=== PATIENT | female | born 1975 | race Caucasian/White ===

== ENCOUNTER 2019-10-09 15:40 | Emergency (ER) | payer OTHER ==
[2019-10-09 16:11] LABS: Basophils # (Auto) 0.1 K/mm3 (0.0-0.1); Basophils % (Auto) 1.4 % (0.0-1.8); Eosinophils # (Auto) 0.1 K/mm3 (0.0-0.4); Eosinophils % (Auto) 1.2 % (0.0-4.3); Lymphocytes # (Auto) 2.1 K/mm3 (1.2-5.4); Lymphocytes % (Auto) 25.2 % (13.4-35.0); Mean Corpuscular HGB Conc 32 % (30-34); Mean Corpuscular Volume 84 fl (79-97); Monocytes # (Auto) 0.5 K/mm3 (0.0-0.8); Monocytes % (Auto) 5.6 % (0.0-7.3); Platelet Count 275 K/mm3 (140-440); Red Blood Count 4.41 M/mm3 (3.65-5.03)
[2019-10-09 16:34] LABS: INR 0.85 (0.87-1.13)
[2019-10-09 16:43] LABS: Alanine Aminotransferase 26 units/L (7-56); Albumin 4.1 g/dL (3.9-5); BUN/Creatinine Ratio 15; Blood Urea Nitrogen 12 mg/dL (7-17); Calcium 9.5 mg/dL (8.4-10.2); Hemolysis Index 21
--- NOTE | 2019-10-09 17:35 | Emergency Department Report ---
ED Abdominal Pain HPI - General Chief Complaint: GI Bleed Stated Complaint: RT SIDE ABD PAIN Time Seen by Provider: 10/09/19 17:20 Source: patient Mode of arrival: Ambulatory Limitations: No Limitations - History of Present Illness Initial Comments: Patient is 44 years old female with no significant past medical history. Patient presented to the ER complaining of right upper quadrant abdominal pain for the last 5 days. Patient described her pain as sharp comes and goes. Patient stated that she had some GI bleed and she has been followed by GI last week and they did a CT abdomen and pelvis and they told her that nothing acute. Patient denied any nausea or vomiting. Patient also denied any fever or chills. MD Complaint: abdominal pain -: days(s) Location: RUQ Radiation: none Migration to: no migration - Related Data Previous Rx's Medication Instructions Recorded Last Taken Type Famotidine [Pepcid] 20 mg PO BID #30 tablet 04/12/16 Unknown Rx diphenhydrAMINE [Benadryl CAP] 25 mg PO Q8HR PRN #20 capsule 04/12/16 Unknown Rx methylPREDNISolone [Medrol] 4 mg PO DAILY #1 tab.ds.pk 04/12/16 Unknown Rx Allergies Allergy/AdvReac Type Severity Reaction Status Date / Time No Known Allergies Allergy Unverified 10/09/19 15:43 ED Review of Systems ROS: Stated complaint: RT SIDE ABD PAIN Other details as noted in HPI Comment: All other systems reviewed and negative Constitutional: denies: chills, fever Respiratory: denies: shortness of breath Cardiovascular: denies: chest pain Gastrointestinal: abdominal pain, hematochezia. denies: nausea, vomiting, diar mahad, constipation, hematemesis, melena Musculoskeletal: denies: back pain Neurological: denies: headache, weakness, numbness, paresthesias, confusion, abnormal gait ED Past Medical Hx - Past Medical History Previous Medical History?: Yes Hx Asthma: Yes - Surgical History Past Surgical History?: Yes Additional Surgical History: Shoulder surgery, , Adenoid/tonsilectomy - Social History Smoking Status: Never Smoker Substance Use Type: None - Medications Home Medications: Home Medications Medication Instructions Recorded Confirmed Last Taken Type Famotidine [Pepcid] 20 mg PO BID #30 tablet 04/12/16 Unknown Rx diphenhydrAMINE [Benadryl CAP] 25 mg PO Q8HR PRN #20 capsule 04/12/16 Unknown Rx methylPREDNISolone [Medrol] 4 mg PO DAILY #1 tab.ds.pk 04/12/16 Unknown Rx ED Physical Exam - General Limitations: No Limitations General appearance: alert, in no apparent distress - Head Head exam: Present: atraumatic, normocephalic, normal inspection - Eye Eye exam: Present: normal appearance, PERRL - ENT ENT exam: Present: normal exam, normal orophraynx, mucous membranes moist - Neck Neck exam: Present: normal inspection, full ROM. Absent: tenderness, meningismus, lymphadenopathy, thyromegaly - Respiratory Respiratory exam: Present: normal lung sounds bilaterally - Cardiovascular Cardiovascular Exam: Present: regular rate, normal rhythm, normal heart sounds - GI/Abdominal GI/Abdominal exam: Present: soft, tenderness (Right upper quadrant tenderness.), normal bowel sounds. Absent: distended, guarding, rebound, rigid, organomegaly, mass, bruit, pulsatile mass, hernia - Extremities Exam Extremities exam: Present: normal inspection, full ROM, normal capillary refill - Back Exam Back exam: Present: normal inspection, full ROM. Absent: CVA tenderness (R), CVA tenderness (L) - Neurological Exam Neurological exam: Present: alert, oriented X3, CN II-XII intact, normal gait, reflexes normal. Absent: motor sensory deficit - Psychiatric Psychiatric exam: Present: normal mood - Skin Skin exam: Present: warm, intact, normal color ED Course Vital Signs 10/09/19 10/09/19 15:43 19:08 Temperature 98.1 F Pulse Rate 82 79 Respiratory 18 18 Rate Blood Pressure 147/86 Blood Pressure 108/54 [Left] O2 Sat by Pulse 98 100 Oximetry ED Medical Decision Making - Lab Data Result diagrams: 10/09/19 15:55 10/09/19 16:06 - Medical Decision Making Patient is 44 years old female with no significant past medical history. Patient presented to the ER complaining of right upper quadrant abdominal pain for the last 5 days. Patient described her pain as sharp comes and goes. Patient stated that she had some GI bleed and she has been followed by GI last week and they did a CT abdomen and pelvis and they told her that nothing acute. Patient denied any nausea or vomiting. Patient also denied any fever or chills. Labs reviewed and is unremarkable. Gallbladder ultrasound showed gallstones but no evidence of acute cholecystitis. Patient advised to follow-up with a surgeon, patient given Dr. Baumann to follow-up with. Patient also advised to return to the ER if he develop any new symptoms. Critical care attestation.: If time is entered above; I have spent that time in minutes in the direct care of this critically ill patient, excluding procedure time. ED Disposition Clinical Impression: Abdominal pain, Gallstone Disposition: - TO HOME OR SELFCARE Is pt being admited?: No Condition: Stable Instructions: Abdominal Pain (ED), Biliary Colic (ED) Referrals: MARIAA DOBBS MD [Primary Care Provider] - 3-5 Days RAYMON BAUMANN DO [Staff Physician] - 3-5 Days Forms: Accompanied Note
[2019-10-09] MEDS ORDERED: MORPHINE 4 MG/1 ML INJ IM ONE (17:54)
[2019-10-09] MEDS ORDERED: ONDANSETRON 4 MG/2 ML INJ IM ONE (17:54)
[2019-10-09 18:08] LABS: HCG Qualitative,Urine Negative (Negative)
[2019-10-09 18:09] LABS: Bilirubin,Urine NEG (Negative); Blood,Urine MOD (Negative); Color,Urine Yellow (Yellow); Mucus,Urine FEW /HPF; Protein,Urine <15 mg/dL mg/dL (Negative); Urobilinogen,Urine < 2.0 mg/dL (<2.0)
--- NOTE | 2019-10-09 19:15 | Ultrasound Report ---
ULTRASOUND ABDOMEN, LIMITED (RIGHT UPPER QUADRANT) INDICATION: Right upper quadrant pain and tenderness. COMPARISON: None available. FINDINGS: Pancreas: Visualized portion shows no significant abnormality. Liver: Mild increased echotexture. Gallbladder: Gallstone. No wall thickening. Bile ducts: Normal. Common Bile Duct measures 5.4 mm. Free fluid: None. Additional Findings: None. IMPRESSION: 1. Gallstone. 2. Suspect underlying hepatocellular disease. Signer Name: Norman Garcia MD Signed: 10/09/2019 7:11 PM Workstation Name: [id number]
[2019-10-09 20:07] VITALS: BP 109/68
== END 2019-10-09 20:07 | disposition home or self-care (01) ==
LOC: ED 15:40
DX: R10.11 Right upper quadrant pain (principal); K80.20 Calculus of gallbladder without cholecystitis without obstruction; J45.909 Unspecified asthma, uncomplicated; Z90.79 Acquired absence of other genital organ(s); Z98.890 Other specified postprocedural states; Z79.899 Other long term (current) drug therapy
CPT/HCPCS: 36415; 76705; 80053; 81001; 81025; 83690; 85025; 85610; 96372; 99284; J2270; J2405

== ENCOUNTER 2019-10-30 07:00 | Day surgery (SDC) | payer OTHER ==
--- NOTE | 2019-10-28 09:17 | Anesthesia Consultation ---
Anesthesia Consult and Med Hx Date of service: 10/30/19 - Airway Anesthetic Teeth Evaluation: Good ROM Head & Neck: Adequate Mental/Hyoid Distance: Adequate Mallampati Class: Class I Intubation Access Assessment: Possibly Difficult - Pulmonary Exam CTA: Yes - Cardiac Exam Cardiac Exam: RRR - Pre-Operative Health Status ASA Pre-Surgery Classification: ASA3 Proposed Anesthetic Plan: General - Pulmonary Hx Asthma: Yes (rare inhaler use) Hx Respiratory Symptoms: No Hx Sleep Apnea: No (KINJAL PRE SCREEN HIGH RISK) - Cardiovascular System Hx Hypertension: No Hx Heart Attack/AMI: No Hx Percutaneous Transluminal Coronary Angioplasty (PTCA): No - Central Nervous System CVA: No - Gastrointestinal Hx Gastroesophageal Reflux Disease: Yes - Endocrine Hx Renal Disease: No Hx Liver Disease: No Hx Insulin Dependent Diabetes: No Hx Non-Insulin Dependent Diabetes: No Hx Thyroid Disease: No - Hematic Hx Anemia: No - Other Systems Hx Obesity: Yes (BMI 42) - Additional Comments Anesthesia Medical History Comments: No hx anesthetic complications.
[~2019-10-30 07:00] MED LIST: CELECOXIB 200 MG CAP PO NR; GABAPENTIN 300 MG CAP PO NR; LACTATED RINGERS 1,000 ML IV SCH; MAGNESIUM OXIDE 400 MG TAB PO SCH; MIDAZOLAM 2 MG/2 ML INJ IV NR; SCOPOLAMINE TRANSDERMAL PATCH 72 HR TD NR
[2019-10-30] MEDS ORDERED: BUPIVACAINE/PF (0.5%) 5 MG/1 ML 30 ML VIAL INFILTRATI ONE ×2 (07:42→10:48)
[2019-10-30] MEDS ORDERED: LIDOCAINE (1%) 10 MG/1 ML VIAL 20 ML MDV ONE (07:42)
[2019-10-30] MEDS ORDERED: ONDANSETRON 4 MG/2 ML INJ IV PRN (07:49)
--- NOTE | 2019-10-30 07:49 | Anesthesia Day of Surgery ---
Anesthesia Day of Surgery - Day of Surgery Patient Examined: Yes Patient H&P Reviewed: Yes Patient is NPO: Yes
[2019-10-30] MEDS ORDERED: ceFAZolin/Water 2 GM/20 ML 2 GM/20 ML SYRINGE IV NR (08:00)
[2019-10-30] MEDS ORDERED: ROCURONIUM 50 MG/5 ML INJ IV ONE (09:38)
[2019-10-30] MEDS ORDERED: HYDROmorphone 1 MG/1 ML INJ ONE (09:38)
[2019-10-30] MEDS ORDERED: dexAMETHasone 20 MG/5 ML VIAL ONE (09:38)
[2019-10-30] MEDS ORDERED: LIDOCAINE MPF (2%) 20 MG/1 ML VIAL 5 ML ONE (09:38)
[2019-10-30] MEDS ORDERED: ONDANSETRON 4 MG/2 ML INJ ONE (09:38)
[2019-10-30] MEDS ORDERED: propofoL 200 MG/20 ML VIAL IV ONE (09:39)
[2019-10-30] MEDS ORDERED: SUCCINYLCHOLINE CHLORIDE 200 MG/10 ML INJ MDV ONE (09:39)
[2019-10-30] MEDS ORDERED: LIDOCAINE (1%) 10 MG/1 ML VIAL 20 ML MDV INFILTRATI ONE (10:48)
[2019-10-30] MEDS ORDERED: WATER FOR IRRIG STERILE 1,500 ML BOTTLE IR ONE (10:49)
[2019-10-30] MEDS ORDERED: SODIUM CHLORIDE 0.9% IRRIG SOLN 2000 ML IR ONE (10:50)
[2019-10-30] MEDS ORDERED: LACTATED RINGERS 1,000 ML ONE (11:00)
[2019-10-30] MEDS ORDERED: NEOSTIGMINE 10MG/10 ML INJ MDV ONE (11:06)
[2019-10-30] MEDS ORDERED: GLYCOPYRROLATE 0.4 MG/2 ML INJ ONE (11:06)
--- NOTE | 2019-10-30 11:20 | Short Stay Summary ---
Short Stay Documentation Date of service: 10/30/19 - History Principal diagnosis: symptomatic cholelithiasis H&P: obtained from office - Allergies and Medications Current Medications: Allergies No Known Allergies Allergy (Verified 10/23/19 14:26) Home Medications Medication Instructions Recorded Confirmed Last Taken Type Ondansetron [Zofran Odt] 4 mg PO Q8HR PRN #14 tab.rapdis 10/09/19 10/30/19 05:30 Rx traMADoL [Ultram] 50 mg PO Q6HR PRN #14 tablet 10/09/19 10/30/19 10/29/19 18:00 Rx ALBUTEROL NEB's [Proventil 0.083% 2.5 mg IH TID PRN 10/23/19 10/30/19 06/13/18 09:00 History NEBS] Dicyclomine [Bentyl] 20 mg PO DAILY 10/23/19 10/30/19 10/29/19 09:00 History Omeprazole Magnesium [PriLOSEC Otc] 40 mg PO QDAY 10/23/19 10/30/19 10/30/19 05:30 History Active Medications Celecoxib (Celebrex) 200 mg PO PREOP NR Stop: 10/30/19 23:59 Last Admin: 10/30/19 07:40 Dose: 200 mg Documented by: Gabapentin (Gabapentin) 600 mg PO PREOP NR Stop: 10/31/19 23:59 Last Admin: 10/30/19 07:40 Dose: 600 mg Documented by: Hydromorphone HCl (Dilaudid) 0.5 mg IV Q10MIN PRN PRN Reason: Pain , Severe (7-10) Stop: 10/30/19 23:00 Lactated Ringer's (Lactated Ringers) 1,000 mls @ 100 mls/hr IV DIRECT ANA Stop: 10/30/19 23:59 Last Admin: 10/30/19 07:45 Dose: 100 mls/hr Documented by: Cefazolin Sodium (Ancef/Sterile Water 2 Gm/20 Ml) 2 gm in 20 mls @ 80 mls/hr IV PREOP NR Stop: 10/30/19 18:00 Magnesium Oxide (Mag-Ox) 400 mg PO PREOP ANA Stop: 10/30/19 23:59 Last Admin: 10/30/19 07:40 Dose: 400 mg Documented by: Midazolam HCl (Versed) 2 mg IV PREOP NR Stop: 10/30/19 23:59 Last Admin: 10/30/19 08:25 Dose: 2 mg Documented by: Ondansetron HCl (Zofran) 4 mg IV ONCE PRN PRN Reason: Nausea And Vomiting Stop: 10/30/19 18:00 Scopolamine (Transderm-Scop) 1 each TD PREOP NR Stop: 11/03/19 23:59 Last Admin: 10/30/19 07:40 Dose: 1 each Documented by: - Brief post op/procedure progress note Date of procedure: 10/30/19 Pre-op diagnosis: symptomatic cholelithiasis Post-op diagnosis: same Procedure: robotic assisted cholecystectomy Anesthesia: GETA, local Findings: 1. gallbladder with large stone 2. adhesions from stomach to gallbladder Surgeon: RAYMON BAUMANN Estimated blood loss: minimal Pathology: list (gallbladder) Specimen disposition: to lab Condition: stable - Hospital course Hospital course: Pt observed in PACU and discharged to home in stable condition when criteria met - Disposition Condition at discharge: Good Disposition: DC-01 TO HOME OR SELFCARE Short Stay Discharge Plan Activity: other (no heavy lifting for 2 weeks) Diet: regular, low fat Wound: open to air, per your surgeon's advice Additional Instructions: SEE PRINTED DISCHARGE PAPERWORK Follow up with: MARIAA DOBBS MD [Primary Care Provider] - 7 Days RAYMON BAUMANN DO [Staff Physician] - 14 Days
[2019-10-30] MEDS: HYDROmorphone 1 MG/1 ML INJ IV PRN ×3 (11:36→12:05)
[2019-10-30] MEDS ORDERED: HYDROcodone/ACETAMINOPHEN 5-325 MG TAB PO PRN (12:18)
[2019-10-30 12:34] VITALS: BP 134/83
--- NOTE | 2019-10-30 13:53 | Post Anesthesia Evaluation ---
- Post Anesthesia Evaluation Patient Participated: Yes Airway Patent: Yes Stable Respiratory Function: Yes Nausea/Vomiting: No Temp > 96.8F: Yes Pain Manageable: Yes Adequeate Hydration: Yes Anesthesia Complications: No Block Receding Appropriately: Not Applicable Patient on Ventilator: No
--- NOTE | 2019-10-30 16:07 | Operative Report ---
Operative Report Operative Report: Date of procedure: 10/30/19 Pre-op diagnosis: symptomatic cholelithiasis Post-op diagnosis: same Procedure: robotic assisted cholecystectomy Anesthesia: GETA, local Findings: 1. gallbladder with large stone 2. adhesions from stomach to gallbladder Surgeon: RAYMON BAUMANN Estimated blood loss: minimal Pathology: list (gallbladder) Specimen disposition: to lab Condition: stable - Hospital course Hospital course: Pt observed in PACU and discharged to home in stable condition when criteria met HPI an indication: 44-year-old female who was referred to the office for evaluation of gallstones. Pertinent lab data and imaging were reviewed and patient was found to have symptomatic cholelithiasis and cholecystectomy was recommended. All risks, benefits, alternatives to surgery were discussed with the patient and questions answered. Consent was signed for a robotic assisted cholecystectomy, possible open, possible cholangiogram. Procedure in detail: The patient was identified in the preoperative area and taken back to the operating room, placed on the operating room table in supine position. The patient's right arm was tucked and all bony prominences padded appropriately. After anesthesia was induced, the abdomen was prepped and draped in usual sterile fashion and timeout was performed. Local anesthetic was infiltrated into all of the skin incision sites. Using a 11 blade a stab incision was made in the left upper quadrant at Allen's point through which a Veress needle was inserted. The position of the veress needle was confirmed with the saline drop test and the abdomen was then insufflated to 15 mmHg. A supraumbilical incision was made through which a 12 mm Optiview trocar was placed. The abdomen was then inspected and the Veress needle located. There is no underlying injury to any of the abdominal contents and the Veress needle was withdrawn. An additional right upper quadrant, right mid lateral abdominal, and left upper quadrant 8 mm robotic trocars were placed under direct visualization. The patient was placed in reverse Trendelenburg and tilted to the left. The robot was then docked in the usual fashion and the surgeon transferred to the c onsole. The gallbladder was visualized and there were from the gallbladder to the stomach. The gallbladder was grasped and retracted cephalad. The adhesions to the stomach were carefully dissected using hook electrocautery with great care to avoid injury to underlying structures. The cystic duct and artery were then carefully dissected and the critical view obtained, and the cystic duct and ar tad were the only two structures seen entering the gallbladder. Two hemolock clips were then placed on the proximal aspect of the cystic duct and one clip distally, and 2 hemolock clip was placed on the cystic artery proximally and one distally. The cystic duct and artery was transected in between the clips using EndoShears by the optometrist assistant surgeon. The gallbladder was dissected off the liver bed using hook electrocautery. Once the gallbladder dissection was complete it was placed into the right upper quadrant and the liver bed and gallbladder fossa examined. The clips were visualized and intact. Hemostasis was carefully ensured using cautery and no bleeding was seen. The robot was then undocked and the surgeon scrubbed back in. The remainder of the case was performed laparoscopically. The gallbladder was placed into a Endo Catch bag and removed via the 12 mm port. The gallbladder fossa and right upper quadrant were irrigated until the irrigant returned clear. The patient was then placed into neutral position and Morison's pouch was irrigated and the irrigant returned clear. The 12 mm port fascia was closed with interrupted 0 Vicryl sutures using the Terry Jacinto de vice. The remaining ports were removed under direct visualization. Skin incisions were closed with 4-0 Monocryl subcuticular stitches and skin glue. All skin incisions were once again infiltrated with local anesthetic. Palpation of the gallbladder revealed a large stone. At the end case all sponge, instrument, sharp counts were correct 2. The patient was awoken from anesthesia, extubated, taken to PACU in stable condition.
== END 2019-10-30 07:01 | disposition home or self-care (01) ==
LOC: OR 07:00
PROVIDERS: ATTEND Surgery
DX: K80.20 Calculus of gallbladder without cholecystitis without obstruction (principal); Z11.59 Encounter for screening for other viral diseases; G43.909 Migraine, unspecified, not intractable, without status migrainosus; J45.909 Unspecified asthma, uncomplicated; G47.30 Sleep apnea, unspecified; E66.9 Obesity, unspecified; Z79.899 Other long term (current) drug therapy; Z98.890 Other specified postprocedural states
CPT/HCPCS: 47562; 81025; 88304; A4217; J0330; J0690; J1100; J1170; J2250; J2405; J2704; J2710; J7120; S2900; U0003

== ENCOUNTER 2020-06-09 00:49 | Emergency (ER) | payer OTHER ==
[2020-06-09] MEDS ORDERED: KETOROLAC 30 MG/1 ML INJ IV ONE (03:23)
[2020-06-09] MEDS ORDERED: ONDANSETRON 4 MG/2 ML INJ IV ONE (03:23)
[2020-06-09 04:40] LABS: Basophils % (Auto) 0.2 % (0.0-1.8); Eosinophils # (Auto) 0.1 K/mm3 (0.0-0.4); Eosinophils % (Auto) 0.5 % (0.0-4.3); Hematocrit 39.2 % (30.3-42.9); Hemoglobin 13.2 gm/dl (10.1-14.3); Lymphocytes # (Auto) 0.7 K/mm3 (1.2-5.4); Lymphocytes % (Auto) 6.2 % (13.4-35.0); Mean Corpuscular HGB Conc 34 % (30-34); Mean Corpuscular Volume 83 fl (79-97); Monocytes # (Auto) 0.6 K/mm3 (0.0-0.8); Monocytes % (Auto) 5.4 % (0.0-7.3); Platelet Count 273 K/mm3 (140-440); Red Blood Count 4.73 M/mm3 (3.65-5.03); Red Cell Distribution Width 14.9 % (13.2-15.2)
[2020-06-09 05:04] LABS: Alanine Aminotransferase 21 units/L (7-56); Blood Urea Nitrogen 25 mg/dL (7-17); Calcium 9.3 mg/dL (8.4-10.2); Hemolysis Index 2
[2020-06-09 05:09] LABS: BUN/Creatinine Ratio 36; Bilirubin,Direct < 0.2 mg/dL (0-0.2)
--- NOTE | 2020-06-09 06:00 | Cat Scan Report ---
CT ABDOMEN AND PELVIS WITH CONTRAST INDICATION: Abdominal Pain CONTRAST: 100 cc Omnipaque 300 IV COMPARISON: Right upper quadrant ultrasound 10/09/[address] scans at this location are performed using CT dose reduction for ALARA by means of automated e xposure control. NOTE: Resolution is decreased and artifact is introduced by the patient's size. FINDINGS: Lung bases show no definite acute infiltrates though in the lateral periphery of the lingul a and left lower lobe there is a small amount of groundglass type interstitial change which possibly could represent acute interstitial infiltrate but could be chronic. No areas of consolidation are see n. Gallbladder has been removed. No biliary dilatation is seen. Mild fatty infiltration of the liver is noted. Liver is mildly enlarged and has a length of 19.5 cm. No focal lesions are seen. Spleen is not enlarged. No urinary obstructive changes are noted. No lymphadenopathy is seen. Small right ovarian cyst probably is physiologic. No free fluid is noted. No evidence of bowel obstruction is seen. Mild colonic diverticulosis is noted without evidence of diverticulitis. Appendix appears within normal li mits. IMPRESSION: 1. No acute abnormalities are seen in the abdomen or pelvis 2. Mild peripheral groundglass type interstitial change in the periphery of the left lower lobe and l ingula of unknown chronicity. I cannot exclude the possibility of mild acute interstitial infiltrate and clinical correlation is suggested. Signer Name: Ru Augustine MD Signed: 06/09/2020 5:56 AM Workstation Name: [id number]
--- NOTE | 2020-06-09 06:55 | Emergency Department Report ---
ED Abdominal Pain HPI - General Chief Complaint: Abdominal Pain Stated Complaint: RT SIDE ABD PAIN, VOMITING Time Seen by Provider: 06/09/20 03:22 Source: patient Mode of arrival: Ambulatory Limitations: No Limitations - History of Present Illness Initial Comments: 45-year-old female presents emergency department complaining of right upper quadrant pain. To be worsened after she eats radiates around her flank has been present for the last 4 days. Over the last 1 to 2 days she has developed diarrhea x5 and few episodes of vomiting as well and occasional fever sensation is reports no hemoptysis, no hematemesis, hematochezia, no chest pain, no palp itations, no rashes. She reports having gallbladder surgery several months ago and is unsure if it is related to her current symptoms. MD Complaint: abdominal pain -: Gradual Location: R flank Radiation: R flank Severity: moderate Severity scale (0 -10): 6 Quality: aching, sharp Consistency: constant Improves With: nothing Worsens With: nothing Associated Symptoms: vomiting, hematemesis. denies: diarrhea, constipation, dysuria, melena, hematuria, anorexia - Related Data Home Medications Medication Instructions Recorded Confirmed Last Taken ALBUTEROL NEB's [Proventil 0.083% 2.5 mg IH TID PRN 10/23/19 10/30/19 06/13/18 09:00 NEBS] Dicyclomine [Bentyl] 20 mg PO DAILY 10/23/19 10/30/19 10/29/19 09:00 Omeprazole Magnesium [PriLOSEC Otc] 40 mg PO QDAY 10/23/19 10/30/19 10/30/19 05:30 Previous Rx's Medication Instructions Recorded Last Taken Type Ondansetron [Zofran ODT TAB] 4 mg PO Q8HR PRN #14 tab.rapdis 10/09/19 10/30/19 05:30 Rx traMADoL [Ultram 50 MG tab] 50 mg PO Q6HR PRN #14 tablet 10/09/19 10/29/19 18:00 Rx Albuterol Mdi (or & Nicu Only) 1 puff IH Q4-6H PRN #1 inha 06/09/20 Unknown Rx [ProAir HFA Inhaler] Azithromycin [Zithromax] 500 mg PO QDAY #5 tablet 06/09/20 Unknown Rx Ondansetron [Zofran ODT TAB] 8 mg PO Q12HR #14 tab.rapdis 06/09/20 Unknown Rx Allergies Allergy/AdvReac Type Severity Reaction Status Date / Time No Known Allergies Allergy Verified 10/23/19 14:26 ED Review of Systems ROS: Stated complaint: RT SIDE ABD PAIN, VOMITING Other details as noted in HPI Comment: All other systems reviewed and negative ED Past Medical Hx - Past Medical History Hx Hypertension: No Hx Heart Attack/AMI: No Hx GERD: Yes Hx Liver Disease: No Hx Renal Disease: No Hx Headaches / Migraines: Yes (MIGRAINES) Hx Asthma: Yes (rare inhaler use) Hx HIV: No - Surgical History Additional Surgical History: Shoulder surgery, , Adenoid/tonsilectomy - Social History Smoking Status: Never Smoker - Medications Home Medications: Home Medications Medication Instructions Recorded Confirmed Last Taken Type Ondansetron [Zofran ODT TAB] 4 mg PO Q8HR PRN #14 tab.rapdis 10/09/19 10/30/19 10/30/19 05:30 Rx traMADoL [Ultram 50 MG tab] 50 mg PO Q6HR PRN #14 tablet 10/09/19 10/30/19 10/29/19 18:00 Rx ALBUTEROL NEB's [Proventil 0.083% 2.5 mg IH TID PRN 10/23/19 10/30/19 06/13/18 09:00 History NEBS] Dicyclomine [Bentyl] 20 mg PO DAILY 10/23/19 10/30/19 10/29/19 09:00 History Omeprazole Magnesium [PriLOSEC Otc] 40 mg PO QDAY 10/23/19 10/30/19 10/30/19 05:30 History Albuterol Mdi (or & Nicu Only) 1 puff IH Q4-6H PRN #1 inha 06/09/20 Unknown Rx [ProAir HFA Inhaler] Azithromycin [Zithromax] 500 mg PO QDAY #5 tablet 06/09/20 Unknown Rx Ondansetron [Zofran ODT TAB] 8 mg PO Q12HR #14 tab.rapdis 06/09/20 Unknown Rx ED Physical Exam - General Limitations: No Limitations General appearance: alert, in no apparent distress - Head Head exam: Present: atraumatic, normocephalic - Eye Eye exam: Present: normal appearance, PERRL, EOMI Pupils: Present: normal accommodation - ENT ENT exam: Present: mucous membranes moist - Neck Neck exam: Present: normal inspection - Respiratory Respiratory exam: Present: normal lung sounds bilaterally. Absent: respiratory distress - Cardiovascular Cardiovascular Exam: Present: regular rate, normal rhythm. Absent: systolic murmur, diastolic murmur, rubs, gallop - GI/Abdominal GI/Abdominal exam: Present: soft, normal bowel sounds - Extremities Exam Extremities exam: Present: normal inspection - Back Exam Back exam: Present: normal inspection - Neurological Exam Neurological exam: Present: alert, oriented X3 - Psychiatric Psychiatric exam: Present: normal affect, normal mood - Skin Skin exam: Present: warm, dry, intact, normal color. Absent: rash ED Course Vital Signs 06/09/20 06/09/20 01:02 06:54 Temperature 97.9 F 98 F Pulse Rate 92 H 78 Respiratory 16 14 Rate Blood Pressure 108/76 119/71 [Left] O2 Sat by Pulse 100 98 Oximetry ED Medical Decision Making - Lab Data Result diagrams: 06/09/20 04:01 06/09/20 04:01 - Radiology Data Radiology results: report reviewed Patient Name: CORRINE ACOSTA Gender: Female Date of : 1975 Referring Provider: ALEC ESPITIA Organization: [facility] Accession Number: [id number] Requested Date: June 09, 2020 03:24 Report Status: Final Requested Procedure: 1 Procedure Description: CT abdomen pelvis w con Modality: CT Findings Reporting MD: Ru Augustine Dictation Time: June 09, 2020 04:56 Saute Chef: Not available Rejogger Date: CT ABDOMEN AND PELVIS WITH CONTRAST INDICATION: Abdominal Pain CONTRAST: 100 cc Omnipaque 300 IV COMPARISON: Right upper quadrant ultrasound 10/09/[address] scans at this location are performed using CT dose reduction for ALARA by means of automated exposure control. NOTE: Resolution is decreased and artifact is introduced by the patient's size. FINDINGS: Lung bases show no definite acute infiltrates though in the lateral periphery of the lingula and left lower lobe there is a small amount of groundglass type interstitial change which possibly could represent acute interstitial infiltrate but could be chronic. No areas of consolidation are seen. Gallbladder has been removed. No biliary dilatation is seen. Mild fatty infiltration of the liver is noted. Liver is mildly enlarged and has a length of 19.5 cm. No focal lesions are seen. Spleen is not enlarged. No urinary obstructive changes are noted. No lymphadenopathy is seen. Small right ovarian cyst probably is physiologic. No free fluid is noted. No evidence of bowel obstruction is seen. Mild colonic diverticulosis is noted without evidence of diverticulitis. Appendix appears within normal limits. IMPRESSION: 1. No acute abnormalities are seen in the abdomen or pelvis 2. Mild peripheral groundglass type interstitial change in the periphery of the left lower lobe and lingula of unknown chronicity. I cannot exclude the possibility of mild acute interstitial infiltrate and clinical correlation is suggested. Signer Name: Ru Augustine MD Signed: 06/09/2020 4:56 AM Workstation Name: [id number] - Medical Decision Making This patient presents with abdominal pain of unclear etiology. Their evaluation has not identified a emergent etiology for the abdominal pain. Specifically, given the very benign exam, normal laboratory studies, and lack of significant risk factors, I have a very low suspicion for appendicitis, ischemic bowel, bowel perforation, or any other life threatening disease. I have discussed with the patient the level of uncertainty with undifferentiated abdominal pain and clearly explained the need to follow-up as noted on the discharge instructions, or return to the Emergency Department immediately if the pain worsens, develops fever, persistent and uncontrollable vomiting, or for any new symptoms or c oncerns. I discussed with the patient that this presentation today for abdominal pain could represent a significant risk for an acute abdominal process. A CT scan was performed to evaluate for potential causes of the abdominal pain, however, neither the clinical exam nor the CT has identified an emergent etiology for the abdominal pain. Specifically, given the benign exam, the laboratory studies, and unremarkable CT,Although the tests in the ED were essentially normal, there is still a possibility of a process such as appendicitis, diverticulitis, cholecystitis, ulcer, early bowel obstruction, mesenteric ischemia, kidney stone, or even kidney infection which could subsequently cause disability or . The patient understands that they must return within 24 hours for a recheck or see their physician within 24 hours for re-exam due to the possibility of significant surgical or medical process. CT scan did have some groundglass appearance to the lateral lung base that coupled with elevated white count and diarrhea and restratification get the possibility for coronavirus and she is been advised to quarantine accordingly. Patient was ambulated and maintain normal saturations with no chest pain or or shortness of breath Critical care attestation.: If time is entered above; I have spent that time in minutes in the direct care of this critically ill patient, excluding procedure time. ED Disposition Clinical Impression: Abdominal pain, Vomiting, Diarrhea, Ground glass opacity present on imaging of lung Disposition: DC-01 TO HOME OR SELFCARE Is pt being admited?: No Does the pt Need Aspirin: No Condition: Stable Instructions: COVID-19, Abdominal Pain During , [id number], Food Choices to Help Relieve Diarrhea, Adult, COVID-19: How to Protect Yourself and Others - CDC, Vomiting, Adult, COVID-19, Community-Acquired Pneumonia, Adult, Abdominal Pain (ED) Prescriptions: Albuterol Mdi (or & Nicu Only) [ProAir HFA Inhaler] 1 puff IH Q4-6H PRN #1 inha PRN Reason: Cough Azithromycin [Zithromax] 500 mg PO QDAY #5 tablet Ondansetron [Zofran ODT TAB] 8 mg PO Q12HR #14 tab.rapdis Referrals: PRIMARY CAREMD [Primary Care Provider] - 3-5 Days MARIAA DOBBS MD [Staff Physician] - 3-5 Days
[2020-06-09] MEDS ORDERED: dexAMETHasone 4 MG/ML VIAL IM ONE (07:11)
[2020-06-09 07:49] VITALS: BP 128/83
== END 2020-06-09 07:46 | disposition home or self-care (01) ==
LOC: ED 00:49
DX: R10.11 Right upper quadrant pain (principal); R19.7 Diarrhea, unspecified; R11.10 Vomiting, unspecified; R91.8 Other nonspecific abnormal finding of lung field; K21.9 Gastro-esophageal reflux disease without esophagitis; G43.909 Migraine, unspecified, not intractable, without status migrainosus; J45.909 Unspecified asthma, uncomplicated; Z98.890 Other specified postprocedural states; Z79.899 Other long term (current) drug therapy
CPT/HCPCS: 36415; 74177; 80048; 80076; 83690; 84703; 85025; 96374; 96375; 99284; J1885; J2405; Q9967